=== PATIENT | female | born 1980 | race Caucasian/White ===

== ENCOUNTER 2021-03-07 06:50 | Day surgery (SDC) | payer OTHER ==
[2021-03-04 12:47] LABS: BASOPHILS ABSOLUTE AUTO 0.08 K/mm3 (0.00-0.23); BASOPHILS PERCENT AUTO 1 % (0-2); EOSINOPHILS ABSOLUTE AUTO 0.39 K/mm3 (0.00-0.68); EOSINOPHILS PERCENT AUTO 6 % (0-6); Hematocrit 37.1 % (33.0-51.0); Hemoglobin 12.4 g/dL (11.5-16.0); IMMATURE GRAN ABSOLUTE AUTO 0.02 K/mm3 (0.00-0.10); IMMATURE GRAN PERCENT AUTO 0 % (0-1); LYMPHOCYTES ABSOLUTE AUTO 1.75 K/mm3 (0.84-5.20); LYMPHOCYTES PERCENT AUTO 25 % (21-46); MONOCYTES PERCENT AUTO 6 % (4-13); Mean Corpuscular HGB 29.1 pg (26.0-34.0); Mean Corpuscular HGB Conc 33.4 g/dL (31.5-36.5); Mean Corpuscular Volume 87 fL (80-100); Mean Platelet Volume 10.7 fL (9.1-12.4); NEUTROPHILS ABSOLUTE AUTO 4.27 K/mm3 (1.96-9.15); NEUTROPHILS PERCENT AUTO 62 % (41-73); Platelet Count 397 K/mm3 (150-400); RDW Coefficient Variation 12.3 % (11.7-14.2); RDW Standard Deviation 39.7 fL (35.1-46.3); Red Blood Cell Count 4.26 M/mm3 (3.80-5.20); White Blood Cell Count 6.91 K/mm3 (4.00-11.30)
[~2021-03-07] VITALS: Ht 172.7 cm; Wt 76.7 kg
[~2021-03-07 06:50] MED LIST: CYCL10 PO; HYDACE5 PO; HYDR1TAB94 PO; HYDROCODONE-AC118 M5; NAPR500 PO; PROBIOTIC1 EA13 PO; RXHYDACE PO; TRAM50 PO; Ultram50 MG PO
--- NOTE | 2021-03-07 09:43 | NUR ---
03/07/21 0943 Shelly Fraser SHELF/THERAPEUTIC RECREATION SPECIALIST SHELF USED FOR PROCEDURE, SECURE IN PLACE PROTECTING PATIENT'S FACE/HEAD DURING PROCEDURE.
--- NOTE | 2021-03-07 16:58 | NUR ---
POST OP: REPORT RECEIVED FROM LEIGHANN STRAIGHT RULING MACHINE OPERATOR. PT TO UNIT AT ABOUT 1300. PT IS ORIENTED AND DROWSY. AWAKENS TO VOICE AND IS CRYING FROM SOME ANXIETY, PAIN. MEDICATED PER EMAR BY JUMA MARIE. PT FALLS BACK ASLEEP EASILY. SURGICAL SITES WNL, VSS. WILL CTM.
--- NOTE | 2021-03-07 17:02 | NUR ---
SUMMARY: PT IS POD0 LAVH. PT HAS VOIDED SINCE POST OP AND WALKED X1 IN ROOM. APPEARS TO GET NAUSEATED WHEN PAINFUL, MEDICATED PER EMAR WITH TORADOL AND PHENERGAN. PT SLEEPING CURRRENTLY. SCANT BLEED AT [facility] AMB[facility]. VSS, WILL CTM AND REPORT TO KANCHAN DENNISON.
[2021-03-08 05:34] LABS: BASOPHILS ABSOLUTE AUTO 0.02 K/mm3 (0.00-0.23); BASOPHILS PERCENT AUTO 0 % (0-2); EOSINOPHILS PERCENT AUTO 0 % (0-6); Hematocrit 33.6 % (33.0-51.0); Hemoglobin 11.6 g/dL (11.5-16.0); IMMATURE GRAN ABSOLUTE AUTO 0.07 K/mm3 (0.00-0.10); IMMATURE GRAN PERCENT AUTO 0 % (0-1); LYMPHOCYTES ABSOLUTE AUTO 1.65 K/mm3 (0.84-5.20); LYMPHOCYTES PERCENT AUTO 10 % (21-46); MONOCYTES ABSOLUTE AUTO 1.01 K/mm3 (0.16-1.47); MONOCYTES PERCENT AUTO 6 % (4-13); Mean Corpuscular HGB 29.9 pg (26.0-34.0); Mean Corpuscular HGB Conc 34.5 g/dL (31.5-36.5); Mean Corpuscular Volume 87 fL (80-100); NEUTROPHILS ABSOLUTE AUTO 13.76 K/mm3 (1.96-9.15); NEUTROPHILS PERCENT AUTO 83 % (41-73); Platelet Count 363 K/mm3 (150-400); RDW Coefficient Variation 12.3 % (11.7-14.2); Red Blood Cell Count 3.88 M/mm3 (3.80-5.20); White Blood Cell Count 16.51 K/mm3 (4.00-11.30)
--- NOTE | 2021-03-08 07:30 | NUR ---
SUMMARY AMBULATORY.PAIN CONTROLLED WITH PO MEDS.VOIDING WITHOUT DIFF.NO VAG BLEEDING THIS AM
[2021-03-08] MEDS ORDERED: IBU800 M1 PO (10:23)
[2021-03-08] MEDS ORDERED: DULCOLAX400 MG/5 M PO (10:24)
[2021-03-08] MEDS ORDERED: DOCU100 PO (10:24)
[2021-03-08] MEDS ORDERED: OXYACE7.5T PO (10:26)
[2021-03-08] MEDS ORDERED: PROM25 PO (10:27)
[2021-03-08] MEDS ORDERED: SENNA LAXATIVE8.6 MG PO (10:28)
[2021-03-08] MEDS ORDERED: SIME80CH PO (10:30)
--- NOTE | 2021-03-08 11:11 | NUR ---
DISCHARGE NOTES PERSCRIPTIONS PROVIDED 03/07/2021 AND PT STATES FAMILY MEMBER OBTAINED PERSCRIPTION. VOIDING, EATING, WALKING, AND PAIN WAS MANAGED BEFORE DISCHARGE. PT WAS GIVEN VERBAL AND WRITTEN INSTRUCTIONS FOR DISCHARGE.
== END 2021-03-08 11:04 | disposition home or self-care (01) ==
LOC: ORSCMMR 06:50 → ORD 08:30 → ORSCMMR 08:30 → SURS 13:13 → ORSCMMR 03-08 11:04
PROVIDERS: Obstetrics & Gynecology
PROC: 0UT74ZZ Resection of Bilateral Fallopian Tubes, Percutaneous Endoscopic Approach (ICD-10-PCS; principal; 2021-03-07 08:30)
PROC: 0U5F4ZZ Destruction of Cul-de-sac, Percutaneous Endoscopic Approach (ICD-10-PCS; principal; 2021-03-07 08:30)
PROC: 8E0W4CZ Robotic Assisted Procedure of Trunk Region, Percutaneous Endoscopic Approach (ICD-10-PCS; principal; 2021-03-07 08:30)
PROC: 0UT94ZZ Resection of Uterus, Percutaneous Endoscopic Approach (ICD-10-PCS; principal; 2021-03-07 08:30)
DX: N92.1 Excessive and frequent menstruation with irregular cycle (principal); N94.6 Dysmenorrhea, unspecified; R10.2 Pelvic and perineal pain; N73.6 Female pelvic peritoneal adhesions (postinfective); N80.3 Endometriosis of pelvic peritoneum; N84.0 Polyp of corpus uteri; F41.9 Anxiety disorder, unspecified; Z79.899 Other long term (current) drug therapy
CPT/HCPCS: 58571; 58662; S2900; 36415; 84702; 85025; 86850; 86900; 86901; 88305; A9270; J0690; J1100; J1170; J1885; J2250; J2270; J2370; J2405; J2550; J2704; J3010; J7120

== ENCOUNTER → 2022-05-13 | Outpatient (CLI) | payer OTHER ==
[~2022-05-13] MED LIST changes: +DOCU100 PO; +DULCOLAX400 MG/5 M PO; +IBU800 M1 PO; +OXYACE7.5T PO; +PROM25 PO; +SENNA LAXATIVE8.6 MG PO; +SIME80CH PO
[2022-05-13 19:36] LABS: BASOPHILS ABSOLUTE AUTO 0.08 K/mm3 (0.00-0.23); BASOPHILS PERCENT AUTO 1 % (0-2); EOSINOPHILS ABSOLUTE AUTO 0.42 K/mm3 (0.00-0.68); EOSINOPHILS PERCENT AUTO 4 % (0-6); Hematocrit 36.9 % (33.0-51.0); Hemoglobin 12.8 g/dL (11.5-16.0); IMMATURE GRAN ABSOLUTE AUTO 0.03 K/mm3 (0.00-0.10); IMMATURE GRAN PERCENT AUTO 0 % (0-1); LYMPHOCYTES ABSOLUTE AUTO 1.97 K/mm3 (0.84-5.20); LYMPHOCYTES PERCENT AUTO 19 % (21-46); MONOCYTES ABSOLUTE AUTO 0.63 K/mm3 (0.16-1.47); MONOCYTES PERCENT AUTO 6 % (4-13); Mean Corpuscular HGB 30.1 pg (26.0-34.0); Mean Corpuscular HGB Conc 34.7 g/dL (31.5-36.5); Mean Corpuscular Volume 87 fL (80-100); Mean Platelet Volume 10.8 fL (9.1-12.4); NEUTROPHILS PERCENT AUTO 70 % (41-73); Platelet Count 398 K/mm3 (150-400); RDW Coefficient Variation 12.5 % (11.7-14.2); RDW Standard Deviation 39.8 fL (35.1-46.3); Red Blood Cell Count 4.25 M/mm3 (3.80-5.20); White Blood Cell Count 10.43 K/mm3 (4.00-11.30)
[2022-05-13 20:08] LABS: Albumin, Blood 4.2 g/dL (3.4-5.0); Albumin/Globulin Ratio 1.2 (0.8-1.8); Bilirubin, Total 0.5 mg/dL (0.1-1.0); Bun/Creatinine Ratio 13.4 (12.0-20.0); Calcium, Blood 9.1 mg/dL (8.5-10.1); Creatinine, Blood 0.75 mg/dL (0.40-1.00); Follicle Stimulating Hormone 29.9 mIU/ml; Globulin, Blood 3.5 g/dL (2.2-4.0); Luteinizing Hormone 18.8 mIU/ml; Potassium, Blood 3.5 mmol/L (3.5-5.5); Total Protein, Blood 7.7 g/dL (6.4-8.2)
== END | disposition home or self-care (01) ==
LOC: LAB SHORT 16:00
PROVIDERS: Registered Nurse Community Health
DX: E28.319 Asymptomatic premature menopause (principal); Z76.89 Persons encountering health services in other specified circumstances
CPT/HCPCS: 80053; 83001; 83002; 85025

== ENCOUNTER → 2022-11-20 | Outpatient (CLI) | payer OTHER ==
[2022-11-20 18:02] LABS: BASOPHILS ABSOLUTE AUTO 0.09 K/mm3 (0.00-0.23); BASOPHILS PERCENT AUTO 1 % (0-2); EOSINOPHILS ABSOLUTE AUTO 0.58 K/mm3 (0.00-0.68); EOSINOPHILS PERCENT AUTO 7 % (0-6); Hematocrit 37.4 % (33.0-51.0); Hemoglobin 12.7 g/dL (11.5-16.0); IMMATURE GRAN ABSOLUTE AUTO 0.03 K/mm3 (0.00-0.10); IMMATURE GRAN PERCENT AUTO 0 % (0-1); LYMPHOCYTES ABSOLUTE AUTO 2.95 K/mm3 (0.84-5.20); LYMPHOCYTES PERCENT AUTO 33 % (21-46); MONOCYTES ABSOLUTE AUTO 0.46 K/mm3 (0.16-1.47); MONOCYTES PERCENT AUTO 5 % (4-13); Mean Corpuscular HGB 29.9 pg (26.0-34.0); Mean Corpuscular Volume 88 fL (80-100); Mean Platelet Volume 11.3 fL (9.1-12.4); NEUTROPHILS PERCENT AUTO 54 % (41-73); Platelet Count 389 K/mm3 (150-400); RDW Coefficient Variation 12.5 % (11.7-14.2); RDW Standard Deviation 40.2 fL (35.1-46.3); Red Blood Cell Count 4.25 M/mm3 (3.80-5.20); White Blood Cell Count 8.91 K/mm3 (4.00-11.30)
[2022-11-20 18:17] LABS: Very Low Density Lipoprot Chol 31 mg/dL (6-32)
[2022-11-20 18:23] LABS: Alanine Aminotransfer (ALT/SGP 22 U/L (12-78); Albumin/Globulin Ratio 1.1 (0.8-1.8); Alk Phos 55 U/L (50-136); Anion Gap 4 mmol/L (6-16); Aspartate Aminotrans (AST/SGOT 12 U/L (12-37); Bilirubin, Total 0.3 mg/dL (0.1-1.0); Blood Urea Nitrogen 7 mg/dL (8-24); Bun/Creatinine Ratio 9.5 (12.0-20.0); CHOL/HDL RATIO 3.9; CO2, Blood 26 mmol/L (21-32); Calcium, Blood 8.8 mg/dL (8.5-10.1); Chloride, Blood 112 mmol/L (98-108); Cholesterol 167 mg/dL (50-200); Creatinine, Blood 0.74 mg/dL (0.40-1.00); Globulin, Blood 3.7 g/dL (2.2-4.0); Glomerular Filtration Rate 105 (60-); Glucose, Blood 109 mg/dL (70-99); HDL Cholesterol 43 mg/dL (>39); LDL/HDL RATIO 2.2; Low Density Lipoprotein Chol 93 mg/dL (0-110); Potassium, Blood 4.2 mmol/L (3.5-5.5); Sodium, Blood 142 mmol/L (136-145); Total Protein, Blood 7.7 g/dL (6.4-8.2); Triglycerides 156 mg/dL (30-160)
== END | disposition home or self-care (01) ==
LOC: LAB SHORT 15:31 → LAB 15:31
PROVIDERS: Registered Nurse Community Health
DX: Z13.220 Encounter for screening for lipoid disorders (principal)
CPT/HCPCS: 80053; 80061; 83036; 85025